=== PATIENT | male | born 1990 | race American Indian/Alaskan Native ===

== ENCOUNTER 2019-07-22 14:19 | Emergency (ER) | payer SELFPAY ==
[2019-07-22 14:28] VITALS: BP 136/59
--- NOTE | 2019-07-22 14:32 | Emergency Department Report ---
Chief Complaint: Abdominal Pain Stated Complaint: ABD PAIN Time Seen by Provider: 07/22/19 14:26 - HPI History of Present Illness: This is a 28-year-old male nontoxic, well in appearance with no signs of distress presents to the ED for penile shaft pain intermittent. Stated has some pain only during erections, otherwise denies any pains. Denies any pain currently. Patient stated he is asymptotic. Denies any penile discharge, testicular pain, or swelling. Patient denies any urinary symptoms. Patient denies any fever, chills, headache, nausea, vomiting, chest pain or shortness of breathe. denies any other symptoms or complaints. - Exam Vital Signs: Vital Signs 07/22/19 14:26 Temperature 97.6 F Pulse Rate 53 L Respiratory 18 Rate Blood Pressure 136/59 O2 Sat by Pulse 97 Oximetry Physical Exam: no penile discharge. Exam has no ulcers or lesions. Normal testicular exam. No discharge. No urinary symptoms. MSE screening note: Focused history and physical exam performed. Due to findings the following was ordered: ED Medical Decision Making - Medical Decision Making This is a 28-year-old male that presents with nonmedical emergency complaint. Patient denies any symptoms. Patient was approached by registration for insurance or copay but patient refused. I gave patient many different referrals to follow-up. Patient was instructed to Follow-up with a primary care doctor in 3-5 days or if symptoms worsen and continue return to emergency room as soon as possible. At time of discharge, the patient does not seem toxic or ill in appearance. No acute signs of distress noted. Patient agrees to discharge treatment plan of care. No further questions noted by the patient. ED Disposition for MSE Clinical Impression: Penile pain Disposition: Z-07 MED SCREENING EXAM-LEFT Is pt being admited?: No Does the pt Need Aspirin: No Condition: Stable Additional Instructions: Follow-up with a primary care doctor in 3-5 days or if symptoms worsen and continue return to emergency room as soon as possible. Referrals: RYAN MCBRIDE MD [Referring] - 3-5 Days CAMILA PACK MD [Staff Physician] - 3-5 Days [facility] [Outside] - 3-5 Days
== END 2019-07-22 15:00 | disposition left against medical advice (07) ==
LOC: ED 14:19
DX: N48.89 Other specified disorders of penis (principal); Z88.0 Allergy status to penicillin; Z91.013 Allergy to seafood